=== PATIENT | male | born 1995 | race Caucasian/White ===

== ENCOUNTER 2019-12-28 15:01 | Emergency (ER) | payer OTHER ==
[~2019-12-28] VITALS: Ht 170.2 cm; Wt 63.5 kg
[2019-12-28] MEDS ORDERED: LIDOCAINE 1% W/EPINEPHRINE 20 ML VIAL INJ ONE (15:15)
--- NOTE | 2019-12-28 15:32 | Emergency Department Note ---
History of Present Illnes History of Present Illness Chief Complaint: Laceration History of Present Illness This is a 24 year old male Chief Complaint Comment PATIENT IN FROM HOME WITH CO MPLAINTS OF LACERATION TO RIGHT FOREARM; PATIENT STATES THAT HE WAS BREAKING UP TILE AND CUT HIS ARM. PATIENT APPLIED TOURNIQUET PRIOR TO ARRIVAL, 1..5 CM LAC NOTED TO FOREARM, BLEEDING CONTROLLED. 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 Any updates have been documented here. Past Medical History Recent Fever: No Clinical Suspicion of Infectio: No New/Unexplained Change in Ment: No Past Medical History: None Past Surgical History: None Social History Physically hurt or threatened: No Review of Systems Review of Systems Constitutional: Reports no symptoms EENTM: Reports no symptoms Cardiovascular: Reports no symptoms Respiratory: Reports no symptoms Gastrointestinal: Reports no symptoms Genitourinary: Reports no symptoms Musculoskeletal: Reports no symptoms Integumentary: Reports as per HPI Neurological: Reports no symptoms Psychological: Reports no symptoms Endocrine: Reports no symptoms Hematological/Lymphatic: Reports no symptoms Physical Exam Related Data Allergies: Coded Allergies: No Known Allergies (Unverified , 12/28/19) Triage Vital Signs Vital Signs Date Time Temp Pulse Resp B/P (MAP) Pulse Ox O2 Delivery O2 Flow Rate FiO2 12/28/19 15:06 99.0 120 20 138/80 99 Room Air Vital signs reviewed: Yes Physical Exam CONSTITUTIONAL Constitutional: Present well-developed, Present well-nourished HENT HENT: Present normocephalic, Present atraumatic, Present oropharynx clear/moist, Present nose normal HENT L/R: Present left ext ear normal, Present right ext ear normal EYES Eyes: Reports PERRL, Reports conjunctivae normal NECK Neck: Present ROM normal PULMONARY Pulmonary: Present effort normal, Present breath sounds normal CARDIOVASCULAR Cardiovascular: Present regular rhythm, Present heart sounds normal, Present capillary refill normal, Present normal rate GASTROINTESTINAL Abdominal: Present soft, Present nontender, Present bowel sounds normal GENITOURINARY Genitourinary: Present exam deferred SKIN Skin: Present warm, Present dry, Present other (1cm laceration to dorsal R forearm, no active bleeding) MUSCULOSKELETAL Musculoskeletal: Present ROM normal NEUROLOGICAL Neurological: Present alert, Present oriented x 3, Present no gross motor or sensory deficits PSYCHOLOGICAL Psychological: Present mood/affect normal, Present judgement normal Results Imaging Imaging results reviewed: Yes Procedures Laceration Site: upper extremity Side: right Size (cm): 1 Description: linear Local anesthesia: lidocaine 1%, with epi Pre-repair: wound exposed, irrigated extensively Skin layer closed with: other (Prolene) Size (cm): 4-0 Number of sutures: 2 Technique: simple, interrupted Assessment & Plan Medical Decision Making [facility] 24 y.o M presents for R forearm lac. Non complicated, 1cm. X-rays show no foreign body. Lac repaired as noted in procedure note. Will return in 7-10 days for suture removal. Appropriate for DC. Tetanus UTD Reassessment Reassessment time: 15:31 Reassessment Well appearing, NAD Assessment & Plan Final Impression: (1) Laceration Depart Disposition: HOME, SELF-CARE Last Vital Signs Date Time Temp Pulse Resp B/P (MAP) Pulse Ox O2 Delivery O2 Flow Rate FiO2 12/28/19 15:06 99.0 120 20 138/80 99 Room Air Medications in the ED Lidocaine/ Epinephrine ONCE ONCE INJ ; Start 12/28/19 at 15:15; Stop 12/28/19 at 15:16; Status DC GRANT RAMIREZ MD Dec 28, 2019 15:32
--- NOTE | 2019-12-28 16:06 | Diagnostic Imaging Report ---
Right forearm, 2 views. History: Laceration. Findings: The soft tissues are normal. There is no radiopaque foreign body. Bone mineralization is normal. There is no evidence of fracture or dislocation. There are no lytic or sclerotic lesions. The joint spaces are within normal limits. IMPRESSION: Normal right forearm. Signed by: Chas Floyd on 12/28/2019 4:03 PM
[2019-12-28 16:36] VITALS: BP 125/81
== END 2019-12-28 16:39 | disposition home or self-care (01) ==
LOC: EDBD 15:01 → ER 15:03
DX: S51.811A Laceration without foreign body of right forearm, initial encounter (principal); W26.8XXA Contact with other sharp object(s), not elsewhere classified, initial encounter; Y92.008 Other place in unspecified non-institutional (private) residence as the place of occurrence of the external cause
CPT/HCPCS: 99283